=== PATIENT | male | born 1965 | race Caucasian/White ===

== ENCOUNTER 2019-10-12 18:14 | Emergency (ER) | payer OTHER ==
--- NOTE | 2019-10-12 18:19 | PDOC ---
History of Present Illness - General Chief Complaint: Urinary Problem Stated Complaint: urinary syx Time Seen by Provider: 10/12/19 18:17 History Source: Patient Exam Limitations: No Limitations - History of Present Illness Initial Comments: 10/12/19 18:19 HPI 54 YOM with h/o kidney stones c/b infected stone/sepsis, diverticulitis, HTN presenting with acute onset of cloudy urine and urinary urgency this morning. a/ w subjective chills and feeling flushed. took tylenol at 4pm today he had CT scan 2 weeks ago with 1cm kidney stone, planning for further management last ureteral stone c/b infection requiring JJ stenting in 2012, admitted at [facility] Denies chest pain, SOB, palpitation, dizziness, weakness, N, V, D, abdominal pain, bladder and bowel problems, focal weakness/paresthesias, leg swelling/pain , rash. Allergies: None Past Medical History/PSH: as above Social history: Lives with family. No tobacco, ETOH or drug use. Meds: as documented in EMR Family history: noncontributory PMD: Dr Lilly Mae [facility] Urologist: Dr Bell Review of systems Constitutional: +subjective fevers or chills. +flushed. No weakness HEENT: no headache or dizziness. CVS: no cp or syncope. Resp: no sob. No cough. Gastrointestinal: no abdominal pain, nausea, vomiting, diarrhea. Genitourinary: no hematuria. +dark cloudy urine, +urgency. no dysuria or frequency. MUSCULOSKELETAL: No joint pain and swelling. No neck or back pain. SKIN: no redness or skin changes, no discharge, no rash. No wounds. Hematologic: no easy bruising/bleeding. NEUROLOGIC: No headache, dizziness, LOC or altered mental status. No weakness, numbness or tingling. Psych: no anxiety or depression Allergic/Immunologic: no allergies All other systems reviewed and negative, or as documented in HPI. Physical exam General: Well appearing, awake and alert, NAD. HEENT: NCAT, PERRL, EOMI, clear conjunctiva, anicteric, moist mucus membranes, clear oropharynx, no oral lesions.. Neck: neck supple, FROM Resp: CTAB, normal and even respirations, no respiratory distress CVS: +tachycardia, no murmurs, 2+ peripheral pulses throughout, no peripheral edema Abdomen: soft, NTND, no rebound or guarding. no CVAT. : normal external genitalia, normal testicular and scrotal lie, no tenderness. Back: nontender, normal inspection and ROM MSK: no edema, STILES x4, ROM intact. No clubbing or cyanosis. normal bulk and tone. Extremities: no calf tenderness Neuro: alert, oriented appropriately; no focal neurologic deficits Psych: Calm and cooperative Skin: warm and well perfused, cap refill <2 sec, normal color, no rash or skin discoloration. +facial flushing. 10/12/19 18:44 10/12/19 18:48 10/12/19 19:01 Past History - Past Medical History Allergies/Adverse Reactions: Allergies Allergy/AdvReac Type Severity Reaction Status Date / Time No Known Allergies Allergy Verified 02/07/13 10:09 Home Medications: Ambulatory Orders Lisinopril 10 mg PO DAILY 10/12/19 levoFLOXacin [Levaquin -] 500 mg PO DAILY #7 tablet 10/12/19 Anemia: No Asthma: No Cancer: No Cardiac Disorders: No CVA: No COPD: No CHF: No Dementia: No Diabetes: No GI Disorders: No Disorders: No HTN: No Hypercholesterolemia: No Liver Disease: No Seizures: No Thyroid Disease: No - Surgical History Abdominal Surgery: No Appendectomy: No Cardiac Surgery: No Cholecystectomy: No Lung Surgery: No Neurologic Surgery: No Orthopedic Surgery: No - Immunization History Td Vaccination: Yes - Psycho Social/Smoking Cessation Hx Smoking Status: No Smoking History: Never smoked Have you smoked in the past 12 months: No Number of Cigarettes Smoked Daily: 0 Hx Alcohol Use: Yes (quit 4 years ago) Drug/Substance Use Hx: No Substance Use Type: None Hx Substance Use Treatment: No ED Treatment Course - LABORATORY CBC & Chemistry Diagram: 10/12/19 18:50 10/12/19 18:50 Medical Decision Making - Medical Decision Making 10/12/19 18:47 Vital Signs Temp Pulse Resp BP Pulse Ox 99.5 F 114 H 20 160/107 H 98 10/12/19 18:15 10/12/19 18:15 10/12/19 18:15 10/12/19 18:15 10/12/19 18:15 Vital signs with low-grade fever, T-max 99.5, tachycardia at 114, patient does admit to being anxious, hypertensive Differential diagnosis includes infected stone, obstructed stone, hydronephrosis , pyelonephritis, UTI, dehydration, electrolyte/metabolic abnormalities, bacteremia/sepsis No fevers here rectally, patient is very anxious but is currently not in any pain. He is hypertensive is on medications for his blood pressure. Will check basic labs, creatinine, UA and urine culture, type and screen in case of management for infected stone. CT spiral to evaluate location and progression of large stone and now with urinary symptoms to suggest infection. 10/12/19 19:02 - spiked fever here, tmax 100.9, septic workup, cultures, lactic in addition to labs s/o Dr Graham pending workup, imaging and ultimate dispo Discharge - Discharge Information Problems reviewed: Yes Clinical Impression/Diagnosis: UTI (urinary tract infection) Qualifiers: Urinary tract infection type: acute cystitis Hematuria presence: without hematuria Qualified Code(s): N30.00 - Acute cystitis without hematuria Condition: Stable - Additional Discharge Information Prescriptions: levoFLOXacin [Levaquin -] 500 mg PO DAILY #7 tablet - Follow up/Referral - Patient Discharge Instructions Patient Printed Discharge Instructions: DI for Urinary Tract Infection (UTI) Additional Instructions: Drink plenty of water Levaquin 500 mg daily for the next week (start tomorrow) Monitor your temperature (measure using thermometer every 4 hours for the next few days) Return to ER if you have fever greater than 99.5F, experience vomiting, shaking chills or develop abdominal/back pain - Post Discharge Activity
[2019-10-12 18:31] VITALS: BMI 34.4
[2019-10-12] MEDS ORDERED: SODIUM CHLORIDE 0.9% 500 ML INFUS.BAG IV ONE (18:35)
[2019-10-12] MEDS ORDERED: ACETAMINOPHEN 1000 MG/100 ML VIAL (NON FORMULARY) IVPB ONE (18:56)
[2019-10-12] MEDS ORDERED: ACETAMINOPHEN INJECTION 100 ML IVPB ONE (19:05)
[2019-10-12 19:19] LABS: EOS % 0.5 % (0-4.5)
[2019-10-12 19:25] LABS: ALBUMIN 3.8 g/dl (3.4-5.0); BILIRUBIN,TOTAL 0.6 mg/dl (0.2-1); CALCIUM 8.7 mg/dl (8.5-10); POTASSIUM 3.7 mmol/L (3.5-5.1); TOT PROT 6.8 g/dl (6.4-8.2)
[2019-10-12 19:27] LABS: BASO % 0.3 % (0-2.0); HEMOGLOBIN 13.4 GM/dl (11.7-16.9); LYMPH % 6.1 % (8-40); MCH 27.7 pg (25.7-33.7); MCHC 32.8 g/dl (32.0-35.9); MEAN CELL VOLUME 84.3 fl (80-96); MEAN PLT VOLUME 7.2 fl (7.5-11.1); MONO % 11.2 % (3.8-10.2); NEUT % 81.9 % (42.8-82.8); PLATELET COUNT 286 K/MM3 (134-434); RBC 4.86 M/mm3 (4.00-5.60); RDW 12.5 % (11.9-15.9); WHITE BLOOD COUNT 8.8 K/mm3 (4.0-10.8)
[2019-10-12 19:30] LABS: INR 1.28 (0.82-1.09); PROTHROMBIN TIME (PATIENT) 14.3 SEC (10.2-13.0)
[2019-10-12 19:50] VITALS: BP 151/84; PULSE 93; TEMP 99.5
[2019-10-12 20:45] LABS: EPITHELIAL CELLS FEW /hpf
[2019-10-12] MEDS ORDERED: SODIUM CHLORIDE 1,000 ML IV STA (20:49)
[2019-10-12] MEDS ORDERED: cefTRIAXone SODIUM 1 GM VIAL ONE (21:08)
[2019-10-12] MEDS ORDERED: CEFTRIAXONE 1,000 MG in DEXTROSE 5%-WATER - 50 ML IVPB ONE (21:10)
--- NOTE | 2019-10-12 21:41 | PDOC ---
*Physical Exam - Vital Signs Last Vital Signs Temp Pulse Resp BP Pulse Ox 99.5 F 93 H 16 151/84 95 10/12/19 19:49 10/12/19 19:49 10/12/19 19:49 10/12/19 19:49 10/12/19 19:49 ED Treatment Course - LABORATORY CBC & Chemistry Diagram: 10/12/19 18:50 10/12/19 18:50 - ADDITIONAL ORDERS Additional order review: Laboratory Results 10/12/19 10/12/19 10/12/19 19:20 18:50 18:50 PT with INR 14.3 H INR 1.28 H PTT (Actin FS) 26.0 Sodium Potassium Chloride Carbon Dioxide Anion Gap BUN Creatinine Est GFR (CKD-EPI)AfAm Est GFR (CKD-EPI)NonAf Random Glucose Lactic Acid 1.0 Calcium Total Bilirubin AST ALT Alkaline Phosphatase Total Protein Albumin Urine Color Yellow Urine Appearance Slightly Urine pH 5.5 Urine Protein 2+ H Urine Glucose (UA) Negative Urine Ketones Trace Urine Blood 3+ H Urine Nitrite Positive Urine Bilirubin Negative Urine Urobilinogen 0.2 Ur Leukocyte Esterase 2+ Urine RBC 40-60 Urine WBC 60-80 Ur Transition Epith Cell Few Urine Bacteria Moderate 10/12/19 18:50 PT with INR INR PTT (Actin FS) Sodium 133 L Potassium 3.7 Chloride 101 Carbon Dioxide 24 Anion Gap 8 BUN 17.0 Creatinine 1.0 Est GFR (CKD-EPI)AfAm 98.46 Est GFR (CKD-EPI)NonAf 84.95 Random Glucose 144 H Lactic Acid Calcium 8.7 Total Bilirubin 0.6 AST 16 ALT 19 Alkaline Phosphatase 77 Total Protein 6.8 Albumin 3.8 Urine Color Urine Appearance Urine pH Urine Protein Urine Glucose (UA) Urine Ketones Urine Blood Urine Nitrite Urine Bilirubin Urine Urobilinogen Ur Leukocyte Esterase Urine RBC Urine WBC Ur Transition Epith Cell Urine Bacteria 10/12/19 18:50 RBC 4.86 MCV 84.3 MCHC 32.8 RDW 12.5 MPV 7.2 L Neutrophils % 81.9 Lymphocytes % 6.1 L D Monocytes % 11.2 H Eosinophils % 0.5 Basophils % 0.3 - Medications Given in the ED: ED Medications Discontinued Medications Generic Name Dose Route Start Last Admin Trade Name Freq PRN Reason Stop Dose Admin Acetaminophen 1,000 mg 10/12/19 18:56 10/12/19 19:11 Ofirmev Injection - IVPB 12/01/19 18:57 1,000 mg ONCE ONE Administration Sodium Chloride 1,000 ml 10/12/19 18:35 10/12/19 19:08 Normal Saline - IV 10/12/19 18:36 1,000 ml ONCE ONE Administration ED Progress Note - Progress Note Progress Note: Care of this patient received from Dr. Alatorre. Laboratory evaluation notable for normal CBC (white blood cell count is nonelevated at 8800 without shift) remainder of lab work is also normal except for slight elevation of INR 1.28. Urinalysis showed evidence of infection with LE/nitrite/cells and bacteria on microscopic. Sample sent for culture and sensitivity. Renal stone protocol CT was performed to evaluate for perinephric abscess/ obstructing stone or other acute abnormalities in conjunction with his UTI. Preliminary reading of CT by Imaging subcontract administrator: Large left pelvic renal stone, as previously described with mild hydronephrosis but no ureteral stone and no hydroureter. No evidence of abscess or perinephric stranding/inflammation. Case discussed with Dr. Robledo, on-call for urology: Since no evidence of UTI related to obstructing stone, no need for admission. Patient treated with Rocephin 1 g IV and Levaquin 500 mg daily for 7 days (patient states that he believes he had Levaquin when he was admitted in 2012 with perinephric abscess; review of the records from from that he has received Levaquin in the past. Patient states that he feels markedly improved after 2 L of normal saline IV. Levaquin 500 mg daily (#7) sent to his pharmacy. The patient should drink plenty of fluid and monitor his temperature. If he has any recurrence of fever or rigors recur, he should return to the emergency room immediately. He should follow-up with either his urologist at [facility] or he can follow with Dr. Lindsay/Dr. Pedro Discharge - Discharge Information Problems reviewed: Yes Clinical Impression/Diagnosis: UTI (urinary tract infection) Qualifiers: Urinary tract infection type: acute cystitis Hematuria presence: without hematuria Qualified Code(s): N30.00 - Acute cystitis without hematuria Condition: Stable Disposition: HOME - Additional Discharge Information Prescriptions: levoFLOXacin [Levaquin -] 500 mg PO DAILY #7 tablet - Follow up/Referral - Patient Discharge Instructions Patient Printed Discharge Instructions: DI for Urinary Tract Infection (UTI) Additional Instructions: Drink plenty of water Levaquin 500 mg daily for the next week (start tomorrow) Monitor your temperature (measure using thermometer every 4 hours for the next few days) Return to ER if you have fever greater than 99.5F, experience vomiting, shaking chills or develop abdominal/back pain - Post Discharge Activity
== END 2019-10-12 21:51 | disposition home or self-care (01) ==
LOC: FER 18:14
PROC: 3E033NZ Introduction of Analgesics, Hypnotics, Sedatives into Peripheral Vein, Percutaneous Approach (ICD-10-PCS; principal; 2019-10-12)
PROC: 3E03329 Introduction of Other Anti-infective into Peripheral Vein, Percutaneous Approach (ICD-10-PCS; 2019-10-12)
PROC: 3E0337Z Introduction of Electrolytic and Water Balance Substance into Peripheral Vein, Percutaneous Approach (ICD-10-PCS; 2019-10-12)
DX: N30.00 Acute cystitis without hematuria (principal)
CPT/HCPCS: 36415; 74176-TC; 80053; 81003; 81015; 83605; 85025; 85610; 85730; 86850; 86900; 86901; 87040; 87086; 87186; 99283-25; J0131; J7030

== ENCOUNTER 2024-02-09 17:59 | Emergency (ER) | payer OTHER ==
[2024-02-09 18:36] VITALS: BP 142/84; PULSE 128; RESP 20; TEMP 99.6; BMI 34.8
[2024-02-09] MEDS ORDERED: PHENAZOPYRIDINE HCL 100 MG TABLET (FP) ONE (19:43)
[2024-02-09] MEDS ORDERED: IBUPROFEN 600 MG TABLET (FP) PO ONE (19:43)
[2024-02-09] MEDS ORDERED: SULFAMETHOXAZOLE/TRIMETHOPRIM 800MG/160MG D.S. TABLET ONE (19:43)
[2024-02-09] MEDS: IBUPROFEN 600 MG TABLET (FP) PO ONE (19:52)
[2024-02-09] MEDS: PHENAZOPYRIDINE HCL 100 MG TABLET (FP) PO ONE (19:52)
[2024-02-09] MEDS: SULFAMETHOXAZOLE/TRIMETHOPRIM 800MG/160MG D.S. TABLET PO ONE ×2 (19:52→21:29)
[2024-02-09 20:03] LABS: HEMATOCRIT 40.2 % (35.4-49); HEMOGLOBIN 13.4 G/dL (11.7-16.9); MCH 25.4 pg (25.7-33.7); MCHC 33.2 g/dl (32.0-35.9); MEAN CELL VOLUME 76.5 fl (80-96); MEAN PLT VOLUME 7.5 fl (7.5-11.1); PLATELET COUNT 241.8 10^3/uL (134-434); RBC 5.26 10^6/uL (4.00-5.60); RDW 17.5 % (11.9-15.9)
[2024-02-09 20:14] LABS: INR 1.25 (0.83-1.09); PROTHROMBIN TIME (PATIENT) 14.5 SEC (9.7-13.0)
[2024-02-09 20:23] LABS: ALBUMIN 4.3 g/dl (3.4-5.0); BILIRUBIN,TOTAL 0.7 mg/dl (0.2-1); CALCIUM 9.5 mg/dl (8.5-10.1); CREATININE 1.1 mg/dl (0.6-1.3); TOT PROT 7.1 g/dl (6.4-8.2)
[2024-02-09] MEDS ORDERED: cefTRIAXone SODIUM 1 GM VIAL ONE (21:22)
[2024-02-09] MEDS: CEFTRIAXONE 1,000 MG in DEXTROSE 5%-WATER - 50 ML IVPB ONE (21:28)
[2024-02-09 23:01] LABS: EPITHELIAL CELLS 0-5 /hpf
== END 2024-02-09 22:10 | disposition home or self-care (01) ==
LOC: FER 17:59
DX: R30.0 Dysuria (principal); N30.00 Acute cystitis without hematuria; R68.83 Chills (without fever)
CPT/HCPCS: 36415; 80053; 81003; 81015; 85025; 85610; 87086; 87186; 99284-25